=== PATIENT | female | born 1955 | race Caucasian/White ===

== ENCOUNTER → 2017-04-18 14:03 | Outpatient (CLI) | payer MEDICARE | END | disposition home or self-care (01) | LOC: D.US 04-17 11:30 | DX: I10 Essential (primary) hypertension (principal) ==

== ENCOUNTER 2017-07-16 13:02 | Emergency (ER) | payer MEDICARE | END 2017-07-16 14:49 | disposition home or self-care (01) | LOC: D.ER 13:02 | DX: L03.114 Cellulitis of left upper limb (principal); I10 Essential (primary) hypertension ==

== ENCOUNTER 2018-03-08 02:06 | Emergency (ER) | payer MEDICARE ==
[~2018-03-08] VITALS: Ht 167.6 cm; Wt 86.8 kg
[2018-03-08 02:16] VITALS: Ht 167.6 cm; Wt 86.8 kg
[2018-03-08] MEDS ORDERED: PROZAC10 MG (02:18)
[2018-03-08] MEDS ORDERED: SYNTHROID50 MCG (02:18)
[2018-03-08] MEDS ORDERED: BUSPAR5 MG (02:18)
[2018-03-08] MEDS ORDERED: BUPROPION HCL75 MG (02:19)
[2018-03-08] MEDS ORDERED: OXYCONTIN10 MG (02:19)
[2018-03-08] MEDS ORDERED: NORVASC5 MG (02:19)
[2018-03-08 05:08] VITALS: BP 132/74
== END 2018-03-08 05:08 | disposition home or self-care (01) ==
LOC: D.ER 02:06
DX: S01.81XA Laceration without foreign body of other part of head, initial encounter (principal); W18.09XA Striking against other object with subsequent fall, initial encounter; Y93.89 Activity, other specified; Y92.019 Unspecified place in single-family (private) house as the place of occurrence of the external cause

== ENCOUNTER 2018-09-25 09:00 | Outpatient (CLI) | payer MEDICARE ==
[2018-03-08 02:16] VITALS: BMI 30.9
[~2018-09-25 09:00] MED LIST: BUPROPION HCL75 MG; BUSPAR5 MG; NORVASC5 MG; OXYCONTIN10 MG; PROZAC10 MG; SYNTHROID50 MCG
== END 2018-09-25 10:00 | disposition home or self-care (01) ==
LOC: D.MAMMO 09:00
PROVIDERS: ATTEND Family Medicine
DX: Z12.31 Encounter for screening mammogram for malignant neoplasm of breast (principal)

== ENCOUNTER → 2018-10-15 15:00 | Outpatient (CLI) | payer MEDICARE ==
[2018-03-08 02:16] VITALS: BMI 30.9
== END | disposition home or self-care (01) ==
LOC: D.MAMMO 14:30
PROVIDERS: ATTEND Family Medicine
DX: R92.8 Other abnormal and inconclusive findings on diagnostic imaging of breast (principal)